=== PATIENT | male | born 1990 | race Caucasian/White ===

== ENCOUNTER 2020-05-12 12:28 | Emergency (ER) | payer OTHER ==
[~2020-05-12] VITALS: Ht 170.2 cm; Wt 65.0 kg
[~2020-05-12 12:28] MED LIST: CLONAZEPAM1 M1 PO; OXYCODONE15 MG PO
[2020-05-12 13:07] VITALS: BP 128/67
== END 2020-05-12 13:07 | disposition home or self-care (01) | DRG 556 ==
LOC: ED 12:28
DX: M25.561 Pain in right knee (principal); F90.9 Attention-deficit hyperactivity disorder, unspecified type; F17.200 Nicotine dependence, unspecified, uncomplicated; V47.5XXA Car driver injured in collision with fixed or stationary object in traffic accident, initial encounter